=== PATIENT | male | born 1970 | race Caucasian/White ===

== ENCOUNTER → 2020-11-12 | Outpatient (CLI) | payer MEDICARE, OTHER | LOC: KOH-I 14:48 | DX: R05 Cough (principal); I51.7 Cardiomegaly | CPT/HCPCS: 71046 ==

== ENCOUNTER → 2020-11-20 | Outpatient (CLI) | payer MEDICARE, OTHER | LOC: ECHO 09:55 | DX: I51.7 Cardiomegaly (principal) | CPT/HCPCS: ECHO; 93306 ==